=== PATIENT | female | born 1960 | race African-American/Black ===

== ENCOUNTER 2022-03-03 12:48 | Emergency (ER) | payer OTHER ==
[~2022-03-03] VITALS: Ht 162.6 cm; Wt 52.0 kg
[2022-03-03] MEDS ORDERED: SODIUM CHLORIDE 0.9% 1,000 ML IV ONE ×2 (13:15)
[2022-03-03 13:45] LABS: BG BASE EXCESS -2.2 mmol/L (-2.0-2.0); BG CARBOXYHEMOGLOBIN 3.6 % (0.5-1.5); BG DEOXYHEMOGLOBIN 3.4 % (0.0-5.0); BG FRACTION INSPIRED OXYGEN 21; BG HCO3 ACT 22.5 mmol/L (22.0-26.0); BG METHEMOGLOBIN 0.4 % (0.0-1.5); BG OXYGEN SATURATION 96.5 % (92.0-98.5); BG OXYHEMOGLOBIN 92.6 % (94.0-97.0); BG PCO2 38.6 mmHg (35.0-45.0); BG PH 7.384 (7.350-7.450); BG PO2 79.3 mmHg (75.0-100.0); BG SAMPLE SITE RIGHT RADIAL; BG TOTAL HEMOGLOBIN 13.7 g/dL (12.0-18.0); BG VENT MODE ROOM AIR
[2022-03-03 14:22] LABS: BASOPHILS % 0.6 % (0.0-2.0); EOSINOPHILS % 0.4 % (0.0-5.0); HEMOGLOBIN. 13.3 g/dL (12.0-16.0); LYMPHOCYTES % 21.9 % (20.0-50.0); MEAN CORPUSCULAR HEMOGLOBIN 26.7 pg (28.0-32.0); MEAN CORPUSCULAR VOLUME 82.1 fL (81.0-99.0); MEAN PLATELET VOLUME 11.9 fl (7.4-10.4); MONOCYTES % 7.7 % (2.0-8.0); NEUTROPHILS % 69.4 % (40.0-76.0); PLATELET 100 x1000/uL (130-400); RED BLOOD CELL COUNT 4.99 mill/uL (4.2-5.4); RED CELL DISTRIBUTION WIDTH 13.7 % (11.6-14.6)
[2022-03-03 14:29] LABS: CHLORIDE 98 mEq/L (98-107)
[2022-03-03 14:32] LABS: PROTHROMBIN TIME 10.3 sec (9.6-11.0)
[2022-03-03 14:45] LABS: BETA HYDROXYBUTYRATE 0.9 mMol/L (0.0-0.3)
[2022-03-03 17:04] VITALS: BP 185/82
== END 2022-03-03 20:01 | disposition short-term general hospital (02) ==
LOC: ER 12:48 → CANBEDREQ 03-04 09:29
DX: R55 Syncope and collapse (principal); E11.65 Type 2 diabetes mellitus with hyperglycemia; E86.0 Dehydration; Z20.822 Contact with and (suspected) exposure to COVID-19; Z91.14 Patient's other noncompliance with medication regimen; Z79.84 Long term (current) use of oral hypoglycemic drugs
CPT/HCPCS: 36415; 36600; 71045; 80053; 82010; 82375; 82805; 83690; 83880; 83930; 84484; 85025; 85610; 87426; 93005; 96360; 96361; 99285; C9803; J7030; Z7610

== ENCOUNTER 2024-09-25 10:26 | Inpatient (IN) | payer SELFPAY ==
[2024-09-25] VITALS (23 sets, daily range): BP systolic 112–156; BP diastolic 70–97; PULSE 85–126; RESP 13–22; TEMP 36.9–37; O2SAT 97–100
[~2024-09-25] VITALS: Ht 157.5 cm; Wt 46.0 kg
[2024-09-25 10:57] LABS: BASOPHILS % 0.5 % (0.0-2.0); EOSINOPHILS % 0.2 % (0.0-5.0); HEMATOCRIT. 43.4 % (36.0-48.0); HEMOGLOBIN. 13.8 g/dL (12.0-16.0); LYMPHOCYTES % 18.9 % (20.0-50.0); MEAN CORPUSCULAR HEMOGLOBIN 26.3 pg (28.0-32.0); MEAN CORPUSCULAR HGB CONC 31.9 g/dL (31.0-37.0); MEAN CORPUSCULAR VOLUME 82.6 fL (81.0-99.0); MEAN PLATELET VOLUME 11.2 fl (7.4-10.4); MONOCYTES % 6.3 % (2.0-8.0); NEUTROPHILS % 74.1 % (40.0-76.0); PLATELET 127 x1000/uL (130-400); RED BLOOD CELL COUNT 5.26 mill/uL (4.2-5.4); RED CELL DISTRIBUTION WIDTH 14.3 % (11.6-14.6); WHITE BLOOD COUNT 6.3 x1000/uL (4.5-11.0)
[2024-09-25 11:05] LABS: CHLORIDE 101 mEq/L (98-107); POTASSIUM 3.5 mEq/L (3.5-5.1); SODIUM 137 mEq/L (136-145)
[2024-09-25 11:06] LABS: CARBON DIOXIDE 28 mEq/L (21-32)
[2024-09-25 11:07] LABS: CALCIUM 9.5 mg/dL (8.7-10.4)
[2024-09-25 11:12] LABS: CREATININE 1.2 mg/dL (0.6-1.0); GLUCOSE 227 mg/dL (70-105); TROPONIN I HIGH SENSITIVITY 10 ng/L (3.0-34); UREA NITROGEN BLOOD 20 mg/dL (9-23)
[2024-09-25] MEDS: LABETALOL 5MG/ML 4ML INJ IV ONE (12:02)
[2024-09-25] MEDS ORDERED: CLONIDINE 0.1MG TABLET PO ONE (12:45)
[2024-09-25] MEDS: NICARDIPINE 40MG/200ML PREMIX 200 ML IV STA (12:54)
[2024-09-25] MEDS ORDERED: NICARDIPINE 40MG/200ML PREMIX 200 ML IV PRN (15:45)
[2024-09-25] MEDS ORDERED: MAGNESIUM/ALUMINUM HYDROXIDE/SIMETHICONE 30ML UDC PO PRN (15:45)
[2024-09-25] MEDS ORDERED: ACETAMINOPHEN 325MG TABLET PO PRN ×2 (15:45)
[2024-09-25] MEDS ORDERED: NA PHOS,M-B/NA PHOS,DI-BA ENEMA 118ML PR PRN (15:45)
[2024-09-25] MEDS ORDERED: DEXTROSE 50% WATER 50ML SYRINGE IV PRN (15:45)
[2024-09-25] MEDS ORDERED: DIPHENHYDRAMINE 50MG/ML VIAL IV PRN (15:45)
[2024-09-25] MEDS ORDERED: GUAIFENESIN 200MG/10ML SUGAR FREE UDC PO PRN (15:45)
[2024-09-25] MEDS ORDERED: DOCUSATE SODIUM 100MG CAPSULE PO PRN (15:45)
[2024-09-25] MEDS ORDERED: IPRATROPIUM/ALBUTEROL 0.5-3(2.5)MG/3ML NEB HHN PRN (15:45)
[2024-09-25] MEDS ORDERED: ONDANSETRON HCL 4MG/2ML INJ IV PRN (15:45)
[2024-09-25] MEDS: PANTOPRAZOLE SODIUM 40 MG/VIAL IV SCH (16:50)
[2024-09-25] MEDS: AMLODIPINE 10MG TABLET PO SCH (16:51)
[2024-09-25 17:23] LABS: CLARITY URINE CLEAR (CLEAR); COLOR URINE YELLOW (YELLOW); GLUCOSE URINE 3+ (NEGATIVE); KETONES URINE 1+ (NEGATIVE); LEUKOCYTE ESTERASE URINE NEGATIVE (NEGATIVE); NITRITE URINE NEGATIVE (NEGATIVE); OCCULT BLOOD URINE NEGATIVE (NEGATIVE); PH URINE 5.5 (4.5-8.0); PROTEIN URINE 1+ (NEGATIVE); SPECIFIC GRAVITY URINE 1.026 (1.005-1.030); UROBILINOGEN URINE 0.2 E.U./dL (0.2-1.0)
[2024-09-25 17:47] LABS: *AMPHETAMINES SCREEN URINE NEGATIVE (NEGATIVE)
[2024-09-25 17:48] LABS: *BARBITURATES SCREEN URINE NEGATIVE (NEGATIVE); *BENZODIAZEPINES SCREEN URINE NEGATIVE (NEGATIVE); *COCAINE SCREEN URINE NEGATIVE (NEGATIVE); CANNABINOID URINE SCREEN NEGATIVE (NEGATIVE); ECSTASY MDMA SCREEN URINE NEGATIVE (NEGATIVE); METHADONE URINE SCREEN NEGATIVE (NEGATIVE); OPIATES URINE SCREEN NEGATIVE (NEGATIVE); PHENCYCLIDINE URINE SCREEN NEGATIVE (NEGATIVE)
[2024-09-25 17:49] LABS: BACTERIA URINE 1+; RBC URINE 0-2 /hpf (0-2); SQUAMOUS EPITHELIAL CELL URINE 1+ /lpf (RARE/1+); WBC URINE 0-2 /hpf (0-2)
[2024-09-25] MEDS: BLOOD SUGAR DIAGNOSTIC STRIP TEST SCH ×2 (17:58→20:25)
[2024-09-25] MEDS: INSULIN LISPRO 100 UNITS/ML SUBCUT SCH ×3 (18:25→20:25)
[2024-09-25] MEDS: ATORVASTATIN CALCIUM 20MG TABLET PO SCH (20:24)
[2024-09-25] MEDS: METOPROLOL TARTRATE 50MG TABLET PO SCH (20:24)
[2024-09-25] MEDS: NICARDIPINE 100 MG in SODIUM CHLORIDE 0.9% 60 ML IV PRN (22:06)
[2024-09-25 22:07] LABS: HEPATITIS B SURFACE ANTIGEN NEGATIVE (Negative)
[2024-09-25 22:29] LABS: HEPATITIS C AB NON REACTIVE (Neg) (Negative)
[2024-09-25 23:25] LABS: CREATINE KINASE MB FRACTION < 0.5 ng/mL (0.5-3.6); TROPONIN I HIGH SENSITIVITY 12 ng/L (3.0-34)
[2024-09-25 23:27] LABS: CREATINE KINASE 55 IU/L (34-145)
[2024-09-26] VITALS (62 sets, daily range): BP systolic 92–172; BP diastolic 55–96; PULSE 67–95; RESP 11–23; TEMP 36.4–36.9; O2SAT 96–100
[2024-09-26 05:11] LABS: BASOPHILS % 0.5 % (0.0-2.0); EOSINOPHILS % 0.5 % (0.0-5.0); HEMATOCRIT. 35.2 % (36.0-48.0); HEMOGLOBIN. 11.5 g/dL (12.0-16.0); LYMPHOCYTES % 17.3 % (20.0-50.0); MEAN CORPUSCULAR HEMOGLOBIN 26.3 pg (28.0-32.0); MEAN CORPUSCULAR HGB CONC 32.8 g/dL (31.0-37.0); MEAN CORPUSCULAR VOLUME 80.4 fL (81.0-99.0); MONOCYTES % 6.4 % (2.0-8.0); NEUTROPHILS % 75.3 % (40.0-76.0); PLATELET 118 x1000/uL (130-400); RED BLOOD CELL COUNT 4.38 mill/uL (4.2-5.4); RED CELL DISTRIBUTION WIDTH 14.1 % (11.6-14.6); WHITE BLOOD COUNT 9.6 x1000/uL (4.5-11.0)
[2024-09-26 05:18] LABS: CHLORIDE 103 mEq/L (98-107); POTASSIUM 3.5 mEq/L (3.5-5.1); SODIUM 139 mEq/L (136-145)
[2024-09-26 05:19] LABS: CALCIUM 8.8 mg/dL (8.7-10.4); CARBON DIOXIDE 27 mEq/L (21-32)
[2024-09-26 05:24] LABS: CREATININE 0.8 mg/dL (0.6-1.0); GLUCOSE 199 mg/dL (70-105); TRIGLYCERIDE 73 mg/dL (0-150); UREA NITROGEN BLOOD 29 mg/dL (9-23)
[2024-09-26 05:25] LABS: LDL CHOLESTEROL 130 mg/dL (5-100)
[2024-09-26 05:26] LABS: CHOLESTEROL 204 mg/dL (<200); HDL CHOLESTEROL 59 mg/dL (>65)
[2024-09-26 05:27] LABS: T4 FREE 1.33 ng/dL (0.89-1.76); THYROID STIMULATING HORMONE 0.29 uIU/mL (0.55-4.78)
[2024-09-26 05:30] LABS: CREATINE KINASE MB FRACTION < 0.5 ng/mL (0.5-3.6); TROPONIN I HIGH SENSITIVITY 14 ng/L (3.0-34)
[2024-09-26 05:31] LABS: CREATINE KINASE 43 IU/L (34-145)
[2024-09-26] MEDS: INSULIN GLARGINE 100 UNITS/ML SUBCUT SCH (09:28)
[2024-09-26] MEDS ORDERED: INSULIN GLARGINE 100 UNITS/ML SUBCUT SCH (10:00)
[2024-09-26] MEDS: CLONIDINE 0.1MG TABLET PO PRN (12:09)
[2024-09-26] MEDS ORDERED: INSULIN LISPRO 100 UNITS/ML SUBCUT SCH (16:00)
[2024-09-26] MEDS: INSULIN LISPRO 100 UNITS/ML SUBCUT SCH (17:15)
[2024-09-26] MEDS: ATORVASTATIN CALCIUM 40MG TABLET PO SCH (20:40)
[2024-09-27] VITALS: BP 165/89; PULSE 74; RESP 18; TEMP 36.4; O2SAT 98
[2024-09-27 04:00] VITALS: BP 144/84; PULSE 65; RESP 19; TEMP 36.9; O2SAT 97
[2024-09-27 08:00] VITALS: BP 136/66; PULSE 63; RESP 16; TEMP 36.9; O2SAT 100
[2024-09-27] MEDS ORDERED: METO-539 PO (09:11)
[2024-09-27] MEDS ORDERED: LANTUSUD SUBCUT (09:11)
[2024-09-27] MEDS ORDERED: AMLO10TA80 PO (09:11)
[2024-09-27] MEDS ORDERED: LIP40 PO (09:11)
[2024-09-27 12:00] VITALS: BP 146/88; PULSE 61; RESP 15; TEMP 36.7; O2SAT 95
[2024-09-27 12:06] VITALS: BP 146/88; PULSE 61; TEMP 98; O2SAT 95
== END 2024-09-27 14:25 | disposition home or self-care (01) | DRG 199 ==
LOC: ER 10:37 → EDBEDREQ 11:06 → EDBEDREQSVC 14:20 → EDBEDREQ 14:20 → MICUSO 19:02 → 6WST 09-26 21:55
PROVIDERS: ADMIT Hospitalist; ATTEND Hospitalist
DX: I16.1 Hypertensive emergency (principal); N17.9 Acute kidney failure, unspecified; S06.6XAA Traumatic subarachnoid hemorrhage with loss of consciousness status unknown, initial encounter; S02.19XA Other fracture of base of skull, initial encounter for closed fracture; E11.65 Type 2 diabetes mellitus with hyperglycemia; I10 Essential (primary) hypertension; Z91.148 Patient's other noncompliance with medication regimen for other reason; E78.5 Hyperlipidemia, unspecified; Z88.0 Allergy status to penicillin; W18.39XA Other fall on same level, initial encounter; Y93.89 Activity, other specified; Y92.89 Other specified places as the place of occurrence of the external cause; Y99.8 Other external cause status
CPT/HCPCS: 36415; 80048; 80061; 80305; 81003; 82550; 82553; 82962; 83036; 83880; 84439; 84443; 84484; 85025; 86705; 87340; 93005; 93970; 96365; 96372; 96375; 99291; A4606; J1815; J2470; J3490; J7050